=== PATIENT | male | born 1970 | race Caucasian/White ===

== ENCOUNTER 2017-06-22 05:32 | Day surgery (SDC) | payer OTHER ==
[~2017-06-22] VITALS: Ht 180.3 cm; Wt 78.1 kg
[~2017-06-22 05:32] MED LIST: EXTRA STRENGTH500 M1 PO; MULTIVITAMIN1 EAC2 PO
[2017-06-22 06:05] VITALS: BP 125/74
[2017-06-22 12:15] VITALS: BP 111/71
[2017-06-22 13:15] VITALS: BP 107/67
[2017-06-22 15:10] VITALS: BP 114/75
== END 2017-06-22 15:10 | disposition home or self-care (01) ==
LOC: SDC 05:32
PROC: 0SBC4ZZ Excision of Right Knee Joint, Percutaneous Endoscopic Approach (ICD-10-PCS; principal; 2017-06-22)
PROC: 0MUN4KZ Supplement Right Knee Bursa and Ligament with Nonautologous Tissue Substitute, Percutaneous Endoscopic Approach (ICD-10-PCS; principal; 2017-06-22)
DX: S83.511A Sprain of anterior cruciate ligament of right knee, initial encounter (principal); S83.281A Other tear of lateral meniscus, current injury, right knee, initial encounter; S83.241A Other tear of medial meniscus, current injury, right knee, initial encounter; X58.XXXA Exposure to other specified factors, initial encounter; Y93.64 Activity, baseball; Y92.320 Baseball field as the place of occurrence of the external cause; Z88.0 Allergy status to penicillin
CPT/HCPCS: C1713; J0131; J0690; J1100; J1170; J1885; J2250; J2405; J2795; J3010